=== PATIENT | male | born 1940 | race Caucasian/White ===

== ENCOUNTER → 2019-01-06 | Outpatient (REF) | payer MEDICARE, BC ==
[~2019-01-06] MED LIST: CIPROFLOXACN500 MG PO; DOXYCYCL HYC100 MG PO; HYDROCO/APAP1 TA9 PO; NASAL SPRAY 120.05 %; NEXIUM40 M1 PO; PANTOPRAZOLE SO40 MG PO
[2019-01-06 12:08] LABS: URINE BILIRUBIN - DIPSTICK NEGATIVE (NEGATIVE); URINE BLOOD DIPSTICK SMALL (NEGATIVE); URINE COLOR YELLOW; URINE GLUCOSE - DIPSTICK NEGATIVE (NEGATIVE); URINE KETONE NEGATIVE (NEGATIVE); URINE LEUK ESTERASE NEGATIVE (Negative); URINE NITRITE - DIPSTICK NEGATIVE (Negative); URINE PH 7.5 (4.5-8.0); URINE PROTEIN - DIPSTICK NEGATIVE (NEG-TRACE); URINE UROBILINOGEN - DIPSTICK 0.2 E.U./dL (0.2)
[2019-01-06 12:09] LABS: URINE CLARITY CLEAR; URINE RBC 0-2 RBC/hpf (0-5)
== END | disposition home or self-care (01) ==
LOC: LAB 08:45
PROVIDERS: ATTEND Nurse Practitioner
DX: M25.511 Pain in right shoulder (principal); M25.512 Pain in left shoulder; M25.551 Pain in right hip; M25.552 Pain in left hip; R53.83 Other fatigue; M25.50 Pain in unspecified joint; R30.0 Dysuria

== ENCOUNTER 2019-06-29 05:07 | Emergency (ER) | payer MEDICARE, BC ==
[~2019-06-29] VITALS: Ht 182.9 cm; Wt 90.0 kg
[2019-06-29] MEDS ORDERED: PREDNISONE DOSE PACK PO (05:28)
[2019-06-29] MEDS ORDERED: CREAM TOP (05:29)
[2019-06-29] MEDS ORDERED: ELIQUIS5 MG PO (05:30)
[2019-06-29] MEDS ORDERED: STERAPRED DS10 MG PO (06:32)
[2019-06-29] MEDS ORDERED: HYDROXYZ HCL25 MG PO (06:32)
[2019-06-29 06:45] VITALS: BP 131/69
== END 2019-06-29 06:45 | disposition home or self-care (01) ==
LOC: ED 05:07
DX: L25.5 Unspecified contact dermatitis due to plants, except food (principal)